=== PATIENT | male | born 1990 ===

== ENCOUNTER 2017-05-30 10:22 | Emergency (ER) | payer SELFPAY ==
[2017-05-30 10:43] VITALS: TEMP 100; BMI 39.1
[2017-05-30] MEDS ORDERED: KETOROLAC TROMETHAMINE 30 MG/1 ML VIAL IVPUSH ONE (11:11)
[2017-05-30] MEDS ORDERED: SODIUM CHLORIDE 1,000 ML IV STA (11:11)
--- NOTE | 2017-05-30 11:20 | PDOC ---
History of Present Illness - General History Source: Patient Exam Limitations: No Limitations - History of Present Illness Initial Comments: 05/30/17 11:33 The patient is a 27 year old male, with no significant past medical history who presents to the emergency department with persistent flu symptoms. Patients flu symptoms began 7 days ago, went to and was prescribed Tamiflu. Patient finished course of Tamiflu 2 days ago however endorses persistent flu symptoms. Patient reports new productive cough (yellow) and persistent fevers (T max 100) . Patient attempted to go to work today however presents to the ED for worsening symptoms. Patient denies chest pain, headache or dizziness. Patient denies abdominal pain , diarrhea or constipation. Patient denies dysuria, frequency, urgency or hematuria. Patient denies sick contacts or recent travel. Allergies: NKA Past surgical history: None Social history: Current everyday smoker PCP: None <Allyssa Narayan - Last Filed: 05/30/17 11:34> - General History Source: Patient Exam Limitations: No Limitations <Horacio Carreno - Last Filed: 05/30/17 12:35> - General Chief Complaint: SIRS, Suspected/Possible Stated Complaint: COUGH, SINUS Time Seen by Provider: 05/30/17 10:59 Past History <Allyssa Narayan - Last Filed: 05/30/17 11:34> - Past Medical History COPD: No Other medical history: DENIES. - Suicide/Smoking/Psychosocial Hx Smoking History: Current every day smoker Have you smoked in the past 12 months: Yes Number of Cigarettes Smoked Daily: 10 Information on smoking cessation initiated: No Hx Alcohol Use: No Drug/Substance Use Hx: Yes (mja) Substance Use Type: None <Horacio Carreno - Last Filed: 05/30/17 12:35> - Past Medical History Allergies/Adverse Reactions: Allergies Allergy/AdvReac Type Severity Reaction Status Date / Time No Known Allergies Allergy Verified 05/30/17 10:39 Home Medications: Ambulatory Orders Naproxen [Naprosyn -] 500 mg PO BID #14 tablet 09/01/15 Azithromycin 250 mg PO DAILY #4 tablet 05/30/17 Naproxen 500 mg PO BID PRN #20 tablet 05/30/17 Review of Systems - Review of Systems Able to Perform ROS?: Yes Comments:: 05/30/17 11:34 GENERAL/CONSTITUTIONAL: No fever or chills. No weakness. +body aches. HEAD, EYES, EARS, NOSE AND THROAT: No change in vision. No ear pain or discharge. No sore throat. +nasal congestion. +clear rhinorrhea. CARDIOVASCULAR: No chest pain or shortness of breath. RESPIRATORY: + cough. No wheezing, or hemoptysis. GASTROINTESTINAL: No nausea, vomiting, diarrhea or constipation. GENITOURINARY: No dysuria, frequency, or change in urination. MUSCULOSKELETAL: No joint or muscle swelling or pain. No neck or back pain. SKIN: No rash NEUROLOGIC: No headache, vertigo, loss of consciousness, or change in strength/ sensation. ENDOCRINE: No increased thirst. No abnormal weight change. HEMATOLOGIC/LYMPHATIC: No anemia, easy bleeding, or history of blood clots. ALLERGIC/IMMUNOLOGIC: No hives or skin allergy. <Allyssa Narayan - Last Filed: 05/30/17 11:34> *Physical Exam - Vital Signs Last Vital Signs Temp Pulse Resp BP Pulse Ox 100 F H 124 H 19 129/82 96 05/30/17 10:40 05/30/17 10:40 05/30/17 10:40 05/30/17 10:40 05/30/17 10:40 - Physical Exam Comments: 05/30/17 11:34 GENERAL: Awake, alert, and fully oriented, in no acute distress HEAD: No signs of trauma EYES: PERRLA, EOMI, sclera anicteric, conjunctiva clear ENT: Auricles normal inspection, hearing grossly normal, nares patent, oropharynx clear without exudates. Moist mucosa NECK: Normal ROM, supple, no lymphadenopathy, JVD, or masses LUNGS:+Inspiratory crackles at the R lower base. Breath sounds equal. No wheezes. HEART: Regular rate and rhythm, normal S1 and S2, no murmurs, rubs or gallops ABDOMEN: Soft, nontender, normoactive bowel sounds. No guarding, no rebound. No masses EXTREMITIES: Normal range of motion, no edema. No clubbing or cyanosis. No cords, erythema, or tenderness NEUROLOGICAL: Cranial nerves II through XII grossly intact. Normal speech, normal gait SKIN: Warm, Dry, normal turgor, no rashes or lesions noted. <Allyssa Narayan - Last Filed: 05/30/17 11:34> - Vital Signs Last Vital Signs Temp Pulse Resp BP Pulse Ox 100 F H 124 H 19 129/82 96 05/30/17 10:40 05/30/17 10:40 05/30/17 10:40 05/30/17 10:40 05/30/17 10:40 <Horacio Carreno - Last Filed: 05/30/17 12:35> ED Treatment Course - LABORATORY CBC & Chemistry Diagram: 05/30/17 11:15 05/30/17 11:15 - Medications Given in the ED: ED Medications Discontinued Medications Generic Name Dose Route Start Last Admin Trade Name Alena PRN Reason Stop Dose Admin Ketorolac Tromethamine 30 mg 05/30/17 11:11 05/30/17 11:30 Toradol Injection - IVPUSH 05/30/17 11:12 30 mg ONCE ONE Administration <Allyssa Narayan - Last Filed: 05/30/17 11:34> - LABORATORY CBC & Chemistry Diagram: 05/30/17 11:15 05/30/17 11:15 - RADIOLOGY Radiology Studies Ordered: Category Date Time Status CHEST PA & LAT [RAD] Stat Radiology 05/30/17 11:11 Ordered <Horacio Carreno - Last Filed: 05/30/17 12:35> Medical Decision Making - Medical Decision Making 05/30/17 11:16 A portion of this note was documented by scribe services under my direction. I have reviewed the details of the note, within reason, and agree with the documentation with the following case summary and management plan written by me. Patient treated in the ED. Nursing notes are reviewed and incorporated into the medical decision-making. Vital signs reviewed. Peripheral IV access obtained by the nurse, laboratory studies are drawn and sent, reviewed and interpreted by myself. Vital Signs Temp Pulse Resp BP Pulse Ox 100 F H 124 H 19 129/82 96 05/30/17 10:40 05/30/17 10:40 05/30/17 10:40 05/30/17 10:40 05/30/17 10:40 27-year-old male with no past medical history presents with persistent symptoms. The patient was diagnosed approximately 7 days ago with influenza. He went to an urgent care and was treated with Tamiflu. Completed dose of medication 2 days ago. However, patient reports that the cough is nonproductive with sputum production and noticed a fever today. Denies sore throat or difficulty breathing. States that when his cough he has some right lower back pain. Patient has some respiratory crackles the right lower base concerning for pneumonia. We'll obtain a chest x-ray labs and we'll initiate antibiotics for the patient. 05/30/17 12:26 CBC, BMP 05/30/17 11:15 05/30/17 11:15 CMP Sodium 135 mmol/L (136-145) L 05/30/17 11:15 Potassium 3.7 mmol/L (3.5-5.1) 05/30/17 11:15 Chloride 100 mmol/L (98-107) 05/30/17 11:15 Carbon Dioxide 29 mmol/L (21-32) 05/30/17 11:15 Anion Gap 6 (8-16) L 05/30/17 11:15 BUN 10 mg/dL (7-18) 05/30/17 11:15 Creatinine 1.2 mg/dL (0.7-1.3) 05/30/17 11:15 Creat Clearance w eGFR > 60 (>60) 05/30/17 11:15 Random Glucose 115 mg/dL (74-106) H 05/30/17 11:15 Calcium 8.8 mg/dL (8.5-10.1) 05/30/17 11:15 Total Bilirubin 0.7 mg/dL (0.2-1.0) 05/30/17 11:15 AST 72 U/L (15-37) H 05/30/17 11:15 ALT 80 U/L (12-78) H 05/30/17 11:15 Alkaline Phosphatase 87 U/L (45-117) 05/30/17 11:15 Total Protein 8.1 g/dl (6.4-8.2) 05/30/17 11:15 Albumin 3.9 g/dl (3.4-5.0) 05/30/17 11:15 Chest x-ray reviewed by me, pending official radiology read. No acute findings at this time. However, given clinically, we'll treat as early onset pneumonia. We'll initiate azithromycin. Patient otherwise is breathing comfortably and nontoxic appearing. I checked the patient that if he complete antibiotics but the symptoms worsen to return to the ED for repeat chest x-ray and evaluation. I discussed the physical exam findings, ancillary test results and final diagnoses with the patient. I answered all of the patient's questions. The patient was satisfied with the care received and felt comfortable with the discharge plan and treatment plan. The patient will call their primary care physician within 24 hours to arrange follow-up and will return to the Emergency Department with any new, persistant or worsening symptoms. <Horacio Carreno - Last Filed: 05/30/17 12:35> *DC/Admit/Observation/Transfer - Attestations Scribe Attestion: 05/30/17 11:34 Documentation prepared by Allyssa Narayan, acting as veterinary medical officer for Horacio Carreno MD, <Allyssa Narayan - Last Filed: 05/30/17 11:34> - Discharge Dispostion Admit: No <Horacio Carreno - Last Filed: 05/30/17 12:35> Diagnosis at time of Disposition: Bronchitis - Discharge Dispostion Disposition: HOME Condition at time of disposition: Stable - Prescriptions Prescriptions: Azithromycin 250 mg PO DAILY #4 tablet Naproxen 500 mg PO BID PRN #20 tablet PRN Reason: Pain/Fever - Referrals Referrals: Lawrence Stanley MD [Staff Physician] - - Patient Instructions Printed Discharge Instructions: DI for Acute Bronchitis Additional Instructions: Take 500 mg naproxen every 12 hours as needed for pain/fever. Please complete your antibiotics. Finish the course. Drink plenty of fluids and rest. It may take several days before your symptoms improve. If you have worsening symptoms despite finishing up the antibiotics, please call your doctor or return to the ER for further evaluation. - Post Discharge Activity Forms/Work/School Notes: Back to Work
[2017-05-30] MEDS ORDERED: KETOROLAC TROMETHAMINE 30 MG/1 ML VIAL ONE (11:21)
[2017-05-30 11:49] LABS: BASO % 0.2 % (0-2.0); HEMATOCRIT 42.8 % (35.4-49); HEMOGLOBIN 14.1 GM/dL (11.7-16.9); MCH 26.8 pg (25.7-33.7); MCHC 32.9 g/dl (32.0-35.9); MEAN CELL VOLUME 81.4 fl (80-96); MEAN PLT VOLUME 9.1 fl (7.5-11.1); MONO % 6.8 % (3.8-10.2); PLATELET COUNT 182 K/MM3 (134-434); RBC 5.26 M/mm3 (4.00-5.60); RDW 12.6 % (11.9-15.9); WHITE BLOOD COUNT 18.2 K/mm3 (4.0-10.0)
[2017-05-30] MEDS ORDERED: AZITHROMYCIN 500 MG TABLET PO ONE (12:00)
[2017-05-30] MEDS ORDERED: AZITHROMYCIN 250 MG TABLET ONE (12:02)
[2017-05-30 12:04] LABS: ALBUMIN 3.9 g/dl (3.4-5.0); ANION GAP 6 (8-16); BLOOD UREA NITROGEN 10 mg/dL (7-18); CALCIUM 8.8 mg/dL (8.5-10.1); CHLORIDE 100 mmol/L (98-107); CO2 29 mmol/L (21-32); CREATININE 1.2 mg/dL (0.7-1.3); GLUCOSE,RANDOM 115 mg/dL (74-106); POTASSIUM 3.7 mmol/L (3.5-5.1); SGOT/AST 72 U/L (15-37); SGPT/ALT 80 U/L (12-78); SODIUM 135 mmol/L (136-145)
[2017-05-30 12:06] LABS: ALK PHOS 87 U/L (45-117); BILIRUBIN,TOTAL 0.7 mg/dL (0.2-1.0); TOT PROT 8.1 g/dl (6.4-8.2)
[2017-05-30] MEDS ORDERED: ACETAMINOPHEN 325 MG TABLET (FP) PO ONE (13:04)
[2017-05-30] MEDS ORDERED: ACETAMINOPHEN 325 MG TABLET (FP) ONE (13:05)
[2017-05-30 13:10] VITALS: BP 138/74; PULSE 105
== END 2017-05-30 13:10 | disposition home or self-care (01) ==
LOC: JER 10:22
PROC: 3E0333Z Introduction of Anti-inflammatory into Peripheral Vein, Percutaneous Approach (ICD-10-PCS; principal; 2017-05-30)
DX: J40 Bronchitis, not specified as acute or chronic (principal); F17.210 Nicotine dependence, cigarettes, uncomplicated
CPT/HCPCS: 36415; 71046-TC; 80053; 85025; 87040; 99283-25